=== PATIENT | female | born 1940 | race Caucasian/White ===

== ENCOUNTER 2017-03-12 19:08 | Emergency (ER) | payer MEDICARE ==
[~2017-03-12] VITALS: Ht 160 cm; Wt 93.4 kg
--- NOTE | 2017-03-12 19:38 | ED Hip Pain/Injury ---
General Chief Complaint: Hip/Pelvic Problems Stated Complaint: LT HIP/LOWER BACK PAIN Nursing Triage Note: C/O L hip pain x 3 days, denies injury Source: patient Exam Limitations: no limitations History of Present Illness Time seen by provider: 19:36 Initial Comments To ER with low back and left hip pain for the past 3 days. She states that she fell landing on her buttocks 3 days ago. She has been a mandatory since the event. Pain is been constant. She has had some urinary incontinence since the fall. She denies any loss of sensation of her genitals. She denies any prior history of urinary incontinence prior to this fall that is. Timing/Duration: constant Severity: moderate Allergies and Home Medications Allergies Coded Allergies: red dye (Verified Allergy, Unknown, 03/12/17) Home Medications Unable to Obtain Active Prescriptions or Reported Meds Constitutional: see HPI, No chills, No fever EENTM: see HPI Respiratory: no symptoms reported Cardiovascular: no symptoms reported Genitourinary: no symptoms reported Musculoskeletal: see HPI, back pain Skin: no symptoms reported Psychiatric/Neurological: No Symptoms Reported Past Yjaqqzb-Ptvplv-Taqyav Hx Patient Social History Alcohol Use: Denies Use Recreational Drug Use: No Smoking Status: Never a Smoker Recent Foreign Travel: No Contact w/Someone Who Travel: No Recent Infectious Disease Expo: No Recent Hopitalizations: No Physical Abuse: No Sexual Abuse: No Surgeries History of Surgeries: Yes Surgeries: Appendectomy, Gallbladder, Hysterectomy Respiratory History of Respiratory Disorde: No Cardiovascular History of Cardiac Disorders: No Neurological History of Neurological Disord: Yes Neurological Disorders: Stroke Genitourinary History of Genitourinary Disor: No Gastrointestinal History of Gastrointestinal Di: No Musculoskeletal History of Musculoskeletal Dis: No Endocrine History of Endocrine Disorders: No HEENT History of HEENT Disorders: No Cancer History of Cancer: No Psychosocial History of Psychiatric Problem: No Suicide Risk Score: 0 Integumentary History of Skin or Integumenta: No Blood Transfusions History of Blood Disorders: No Physical Exam Vital Signs Vital Sign - Last 12Hours 03/12/17 19:16 Temp 98.2 Pulse 85 Resp 18 B/P (MAP) 177/82 (113) Pulse Ox 98 Capillary Refill : Less Than 3 Seconds General Appearance: No Apparent Distress, WD/WN HEENT: PERRL/EOMI, TMs Normal Neck: Full Range of Motion, Normal Inspection Respiratory: No Accessory Muscle Use, No Respiratory Distress Gastrointestinal: Normal Bowel Sounds, Non Tender, Soft Back: Normal Inspection, Vertebral Tenderness (left flank tenderness without ecchymosis) Extremity: Normal Capillary Refill, Normal Inspection Neurologic/Psychiatric: Alert, Oriented x3, No Motor/Sensory Deficits Skin: Normal Color, Warm/Dry Progress/Results/Core Measures Results/Orders Lab Results Laboratory Tests Test 03/12/17 20:18 03/12/17 20:28 Range/Units White Blood Count 7.5 4.3-11.0 10^3/uL Red Blood Count 4.39 4.35-5.85 10^6/uL Hemoglobin 13.8 11.5-16.0 G/DL Hematocrit 37 35-52 % Mean Corpuscular Volume 85 80-99 FL Mean Corpuscular Hemoglobin 31 25-34 PG Mean Corpuscular Hemoglobin Concent 37 H 32-36 G/DL Red Cell Distribution Width 12.6 10.0-14.5 % Platelet Count 291 130-400 10^3/uL Mean Platelet Volume 9.6 7.4-10.4 FL Neutrophils (%) (Auto) 49 42-75 % Lymphocytes (%) (Auto) 34 12-44 % Monocytes (%) (Auto) 12 0-12 % Eosinophils (%) (Auto) 4 0-10 % Basophils (%) (Auto) 0 0-10 % Neutrophils # (Auto) 3.7 1.8-7.8 X 10^3 Lymphocytes # (Auto) 2.6 1.0-4.0 X 10^3 Monocytes # (Auto) 0.9 0.0-1.0 X 10^3 Eosinophils # (Auto) 0.3 0.0-0.3 10^3/uL Basophils # (Auto) 0.0 0.0-0.1 10^3/uL Urine Color YELLOW Urine Clarity CLEAR Urine pH 6.5 5-9 Urine Specific [place] 1.015 L 1.016-1.022 Urine Protein NEGATIVE NEGATIVE Urine Glucose (UA) NEGATIVE NEGATIVE Urine Ketones NEGATIVE NEGATIVE Urine Nitrite NEGATIVE NEGATIVE Urine Bilirubin NEGATIVE NEGATIVE Urine Urobilinogen NORMAL NORMAL MG/DL Urine Leukocyte Esterase 3+ H NEGATIVE Urine RBC (Auto) NEGATIVE NEGATIVE Urine RBC RARE /HPF Urine WBC 50-100 H /HPF Urine Squamous Epithelial Cells 0-2 /HPF Urine Crystals NONE /LPF Urine Bacteria TRACE /HPF Urine Casts NONE /LPF Urine Mucus SMALL H /LPF Urine Culture Indicated YES My Orders Orders - TODD STEWART APRN Ua Culture If Indicated (03/12/17 19:29) Cbc With Automated Diff (03/12/17 19:29) Ct Lumbar Spine Wo (03/12/17 19:29) Urine Culture (03/12/17 20:28) Vital Signs/I&O Vital Sign - Last 12Hours 03/12/17 19:16 Temp 98.2 Pulse 85 Resp 18 B/P (MAP) 177/82 (113) Pulse Ox 98 Blood Pressure Mean: 113 Diagnostic Imaging Diagonstic Imaging: CT Comments NAME: [facility]IS [facility] REC#: [id number] PT STATUS: REG ER : 1940 PHYSICIAN: TODD STEWART APRN ADMIT DATE: 03/12/17/ER Draft Date of Exam:03/12/17 CT LUMBAR SPINE WO PROCEDURE: CT lumbar spine without contrast. TECHNIQUE: Multiple contiguous axial images were obtained through the lumbar spine without the use of intravenous contrast. Sagittal and coronal reformations were then performed. INDICATION: Fall, pain. COMPARISON: None available. FINDINGS: Five lumbar type vertebral bodies are assumed. Accentuation of the normal lumbar lordosis. 7 mm retrolisthesis of L2 on L3. No additional anterolisthesis or retrolisthesis. [place] left curvature of the lower lumbar spine. Besides endplate degenerative changes, vertebral body heights are well-maintained. Severe disc space height loss at L1/L2 and L2/L3. Mild disc space height loss at T12/L1. Multilevel anterior osteophytes, particularly at L1/L2 and L2/L3. No acute fracture or dislocation. No destructive osseous process. Significant scattered facet joint degenerative changes are present. There is suggestion of mild central canal stenosis at T11/T12. Additional mild central canal stenosis at L2/L3. Mild neuroforaminal stenosis on the right at L5/S1. Moderate bilateral neuroforaminal stenosis at L2/L3. Additional moderate neuroforaminal stenosis at L3/L4. Mild scattered vascular calcifications. Cholelithiasis. IMPRESSION: 1. No acute osseous abnormality. 2. Accentuation of the normal lumbar lordosis with moderate multilevel degenerative changes. This is greatest at L2/L3 where there is resulting degenerative retrolisthesis with central canal and neuroforaminal stenosis, as above. 3. Additional findings as above. Dictated on workstation # [id number] Dict: 03/12/17 1950 Trans: 03/12/171999 E [id number] Interpreted by: JAVAD GAITAN MD Electronically signed by: Departure Impression Impression: Primary Impression: Urinary tract infection Additional Impression: Acute low back pain Disposition: HOME, SELF-CARE Condition: Stable Departure-Patient Inst. Decision time for Depature: 20:46 Referrals: HALIMA BLACKWELL MD (PCP/Family) Primary Care Physician Patient Instructions: Urinary Tract Infection, Adult (DC) Add. Discharge Instructions: 1. Education as directed 2. Return to ER for any concerns 3. See her regular doctor for follow-up All discharge instructions reviewed with patient and/or family. Voiced understanding. Scripts Sulfamethoxazole/Trimethoprim (Bactrim Ds Tablet) 1 Each Tablet 1 EACH PO BID, #10 TAB Prov: TODD STEWART TEST CONDUCTOR 03/12/17 TODD STEWART APRN Mar 12, 2017 19:38
--- NOTE | 2017-03-12 20:01 | Diagnostic Imaging Report ---
PROCEDURE: CT lumbar spine without contrast. TECHNIQUE: Multiple contiguous axial images were obtained through the lumbar spine without the use of intravenous contrast. Sagittal and coronal reformations were then performed. INDICATION: Fall, pain. COMPARISON: None available. FINDINGS: Five lumbar type vertebral bodies are assumed. Accentuation of the normal lumbar lordosis. 7 mm retrolisthesis of L2 on L3. No additional anterolisthesis or retrolisthesis. [place] left curvature of the lower lumbar spine. Besides endplate degenerative changes, vertebral body heights are well-maintained. Severe disc space height loss at L1/L2 and L2/L3. Mild disc space height loss at T12/L1. Multilevel anterior osteophytes, particularly at L1/L2 and L2/L3. No acute fracture or dislocation. No destructive osseous process. Significant scattered facet joint degenerative changes are present. There is suggestion of mild central canal stenosis at T11/T12. Additional mild central canal stenosis at L2/L3. Mild neuroforaminal stenosis on the right at L5/S1. Moderate bilateral neuroforaminal stenosis at L2/L3. Additional moderate neuroforaminal stenosis at L3/L4. Mild scattered vascular calcifications. Cholelithiasis. IMPRESSION: 1. No acute osseous abnormality. 2. Accentuation of the normal lumbar lordosis with moderate multilevel degenerative changes. This is greatest at L2/L3 where there is resulting degenerative retrolisthesis with central canal and neuroforaminal stenosis, as above. 3. Additional findings as above. Dictated by: Dictated on workstation # [id number]
[2017-03-12 20:27] LABS: BASOPHILS % (AUTO) 0 % (0-10); EOSINOPHILS # (AUTO) 0.3 10^3/uL (0.0-0.3); EOSINOPHILS % (AUTO) 4 % (0-10); HEMATOCRIT 37 % (35-52); HEMOGLOBIN 13.8 G/DL (11.5-16.0); LYMPHOCYTES # (AUTO) 2.6 X 10^3 (1.0-4.0); LYMPHOCYTES % (AUTO) 34 % (12-44); MEAN CORPUSCULAR HEMOGLOBIN 31 PG (25-34); MEAN CORPUSCULAR HGB CONC 37 G/DL (32-36); MEAN CORPUSCULAR VOLUME 85 FL (80-99); MEAN PLATELET VOLUME 9.6 FL (7.4-10.4); MONOCYTES # (AUTO) 0.9 X 10^3 (0.0-1.0); MONOCYTES % (AUTO) 12 % (0-12); NEUTROPHILS # (AUTO) 3.7 X 10^3 (1.8-7.8); NEUTROPHILS % (AUTO) 49 % (42-75); PLATELET COUNT 291 10^3/uL (130-400); RED BLOOD COUNT 4.39 10^6/uL (4.35-5.85); RED CELL DISTRIBUTION WIDTH 12.6 % (10.0-14.5); WHITE BLOOD COUNT 7.5 10^3/uL (4.3-11.0)
[2017-03-12 20:35] LABS: BILIRUBIN,URINE NEGATIVE (NEGATIVE); CLARITY,URINE CLEAR; COLOR,URINE YELLOW; GLUCOSE, URINE (UA) NEGATIVE (NEGATIVE); KETONES,URINE NEGATIVE (NEGATIVE); LEUKOCYTE ESTERASE ,URINE 3+ (NEGATIVE); NITRITE,URINE NEGATIVE (NEGATIVE); PH,URINE 6.5 (5-9); PROTEIN,URINE NEGATIVE (NEGATIVE); UROBILINOGEN,URINE NORMAL (NORMAL)
[2017-03-12 20:44] LABS: BACTERIA,URINE TRACE /HPF; RBC,URINE RARE /HPF; SQUAMOUS EPITHELIAL CELL,UR 0-2 /HPF; WBC,URINE 50-100 /HPF
[2017-03-12] MEDS ORDERED: SULF1TAB35 PO (20:47)
[2017-03-12 20:53] VITALS: BP 168/80
[2017-03-12] MEDS ORDERED: TRIM/SULFAMETH 160/800 (SEPTRA DS) TAB PO ONE (21:00)
== END 2017-03-12 20:53 | disposition home or self-care (01) ==
LOC: EDUNIT# 19:08 → ER 19:11
DX: N39.0 Urinary tract infection, site not specified (principal); M54.5 Low back pain; Z90.710 Acquired absence of both cervix and uterus; Z90.49 Acquired absence of other specified parts of digestive tract; Z86.73 Personal history of transient ischemic attack (TIA), and cerebral infarction without residual deficits; W18.30XA Fall on same level, unspecified, initial encounter
CPT/HCPCS: 36415; 72131; 81000; 85025; 87088; 99283

== ENCOUNTER 2018-05-31 10:45 | Emergency (ER) | payer MEDICARE ==
[~2018-05-31] VITALS: Ht 157.5 cm; Wt 95.3 kg
[~2018-05-31 10:45] MED LIST: SULF1TAB35 PO
[2018-05-31] MEDS ORDERED: VENL75CA93 (11:02)
[2018-05-31] MEDS ORDERED: POTA10TA10 (11:02)
[2018-05-31] MEDS ORDERED: TOPI50TA13 (11:02)
[2018-05-31] MEDS ORDERED: OXCA150T18 (11:02)
[2018-05-31] MEDS ORDERED: BENZONATATE 100 MG (TESSALON) CAPSULE PO SCH (11:30)
--- NOTE | 2018-05-31 11:33 | ED Cough/URI ---
General Chief Complaint: Cough/Cold/Flu Symptoms Stated Complaint: TIGHT CHEST, COUGH STUFFY NOSE Nursing Triage Note: ARRIVED VIA AMB TO ROOM 07 WITH A COUGH THAT IS MAKING HER CHEST HURT THAT STARED THIS WEEKEND. STATS SHE JUST GOT OVER PNEUMONIA. Sepsis Screen: No Definite Risk Source: patient, family (daughter) Exam Limitations: no limitations History of Present Illness Date Seen by Provider: May 31, 2018 Time Seen by Provider: 11:05 Initial Comments 78-year-old female who was brought to the emergency room for her daughter for complaints of a cough, left-sided chest pain with coughing, and nasal congestion that became worse over the last week but she's had similar symptoms for the past month. She reports that she was treated for pneumonia by her primary care at the end of April and feels like she is just never got over it due to the cough she's had. She denies shortness of breath, fevers, nausea, vomiting. Timing/Duration: week Associated Symptoms: chest pain/soreness, cough, nasal congestion Allergies and Home Medications Allergies Coded Allergies: red dye (Verified Allergy, Unknown, 03/12/17) Home Medications Ipratropium/Albuterol Sulfate 3 Ml Ampul.neb, 3 ML IH Q4H PRN for SHORTNESS OF BREATH Prescribed by: SONIYA WORLEY on 05/31/18 1240 Levofloxacin 750 Mg Tablet, 750 MG PO DAILY Prescribed by: SONIYA WORLEY on 05/31/18 1240 Prednisone 20 Mg Tab, 40 MG PO DAILY Prescribed by: SONIYA WORLEY on 05/31/18 1240 Sulfamethoxazole/Trimethoprim 1 Each Tablet, 1 EACH PO BID Prescribed by: TODD STEWART on 03/12/172046 Patient Home Medication List Home Medication List Reviewed: Yes Review of Systems Review of Systems Constitutional: see HPI; No chills, No fever EENTM: see HPI, nose congestion Respiratory: see HPI, cough Cardiovascular: see HPI, chest pain (with coughing) All Other Systems Reviewed Negative Unless Noted: Yes Past Odvqzbt-Woqldp-Rsrzyw Hx Past Med/Social Hx: Reviewed Nursing Past Med/Soc Hx Patient Social History Alcohol Use: Denies Use Recreational Drug Use: No Smoking Status: Never a Smoker Recent Foreign Travel: No Contact w/Someone Who Travel: No Recent Infectious Disease Expo: No Recent Hopitalizations: No Past Medical History Surgeries: Yes Appendectomy, Gallbladder, Hysterectomy, Orthopedic Respiratory: Yes Pneumonia Cardiac: No Neurological: Yes Stroke Genitourinary: No Gastrointestinal: No Musculoskeletal: No Endocrine: No HEENT: No Cancer: No Did You Recieve Any Treatments: No Psychosocial: No Integumentary: No Blood Disorders: No Family Medical History Reviewed Nursing Family Hx Physical Exam Vital Signs - First Documented 05/31/18 10:56 Temp 97.1 Pulse 84 Resp 18 B/P (MAP) 151/78 (102) Pulse Ox 96 O2 Delivery Room Air Capillary Refill : Less Than 3 Seconds Height: 5'2.00" Weight: 210lbs. oz. 95.043569hn; BMI Method:Stated General Appearance: WD/WN, no apparent distress HEENT: PERRL/EOMI, normal ENT inspection, TMs normal, pharynx normal Respiratory: lungs clear, normal breath sounds, no respiratory distress, no accessory muscle use, other (left-sided chest tenderness with palpation) Cardiovascular: normal peripheral pulses, regular rate, rhythm, no edema, no gallop, no JVD, no murmur Extremities: normal range of motion, non-tender, normal inspection, no pedal edema, no calf tenderness, normal capillary refill Neurologic/Psychiatric: alert, normal mood/affect, oriented x 3 Skin: normal color, warm/dry Progress/Results/Core Measures Suspected Sepsis Recent Fever Within 48 Hours: No Infection Criteria Present: Suspected New Infection New/Unexplained Altered Menta: No Sepsis Screen: No Definite Risk SIRS Temperature:97.1 Pulse: 84 Respiratory Rate: 18 Laboratory Tests 05/31/18 11:20: White Blood Count 4.8 Blood Pressure 151 /78 Mean: 102 Laboratory Tests 05/31/18 11:20: Creatinine 0.87, INR Comment 1.1, Platelet Count 236, Total Bilirubin 0.3 Results/Orders Lab Results Laboratory Tests Test 05/31/18 11:20 Range/Units White Blood Count 4.8 4.3-11.0 10^3/uL Red Blood Count 4.11 L 4.35-5.85 10^6/uL Hemoglobin 12.9 11.5-16.0 G/DL Hematocrit 41 35-52 % Mean Corpuscular Volume 99 80-99 FL Mean Corpuscular Hemoglobin 31 25-34 PG Mean Corpuscular Hemoglobin Concent 32 32-36 G/DL Red Cell Distribution Width 13.5 10.0-14.5 % Platelet Count 236 130-400 10^3/uL Mean Platelet Volume 10.3 7.4-10.4 FL Neutrophils (%) (Auto) 45 42-75 % Lymphocytes (%) (Auto) 30 12-44 % Monocytes (%) (Auto) 14 H 0-12 % Eosinophils (%) (Auto) 11 H 0-10 % Basophils (%) (Auto) 1 0-10 % Neutrophils # (Auto) 2.2 1.8-7.8 X 10^3 Lymphocytes # (Auto) 1.4 1.0-4.0 X 10^3 Monocytes # (Auto) 0.7 0.0-1.0 X 10^3 Eosinophils # (Auto) 0.5 H 0.0-0.3 10^3/uL Basophils # (Auto) 0.0 0.0-0.1 10^3/uL Prothrombin Time 14.5 12.2-14.7 SEC INR Comment 1.1 0.8-1.4 Activated Partial Thromboplast Time 32 24-35 SEC Sodium Level 144 135-145 MMOL/L Potassium Level 4.1 3.6-5.0 MMOL/L Chloride Level 112 H 98-107 MMOL/L Carbon Dioxide Level 25 21-32 MMOL/L Anion Gap 7 5-14 MMOL/L Blood Urea Nitrogen 13 7-18 MG/DL Creatinine 0.87 0.60-1.30 MG/DL Estimat Glomerular Filtration Rate > 60 BUN/Creatinine Ratio 15 Glucose Level 89 70-105 MG/DL Calcium Level 8.6 8.5-10.1 MG/DL Corrected Calcium 8.9 8.5-10.1 MG/DL Magnesium Level 2.4 1.8-2.4 MG/DL Total Bilirubin 0.3 0.1-1.0 MG/DL Aspartate Amino Transf (AST/SGOT) 31 5-34 U/L Alanine Aminotransferase (ALT/SGPT) 16 0-55 U/L Alkaline Phosphatase 120 40-136 U/L Myoglobin 42.8 10.0-92.0 NG/ML Troponin I < 0.028 <0.028 NG/ML B-Type Natriuretic Peptide 25.6 <100.0 PG/ML Total Protein 5.5 L 6.4-8.2 GM/DL Albumin 3.6 3.2-4.5 GM/DL Micro Results Microbiology 05/31/18 Influenza Types A,B Antigen (MARYANN) - Final, Complete My Orders Orders - SONIYA WORLEY Cbc With Automated Diff (05/31/18 11:11) Magnesium (05/31/18 11:11) Chest 1 View, Ap/Pa Only (05/31/18 11:11) Ekg Tracing (05/31/18 11:11) Cardiac Profile 1 (05/31/18 11:11) Comprehensive Metabolic Panel (05/31/18 11:11) Myoglobin Serum (05/31/18 11:11) Protime With Inr (05/31/18 11:11) Partial Thromboplastin Time (05/31/18 11:11) O2 (05/31/18 11:11) Monitor-Rhythm Ecg Trace Only (05/31/18 11:11) Saline Lock/Iv-Start (05/31/18 11:11) BNP (05/31/18 11:11) Benzonatate Capsule (Tessalon Perles) (05/31/18 11:30) Influenza A And B Antigens (05/31/18 11:20) Vital Signs/I&O 05/31/18 05/31/18 10:56 12:52 Temp 97.1 Pulse 84 77 Resp 18 16 B/P (MAP) 151/78 (102) 149/78 (101) Pulse Ox 96 98 O2 Delivery Room Air Room Air Capillary Refill : Less Than 3 Seconds Blood Pressure Mean: 102 Progress Note : Time: 12:38 Progress Note I have seen and evaluated the patient. I've informed her of her laboratory and imaging studies. She agrees with plan of care, plans for discharge, return precautions were given. ECG EKG : EKG Time: 11:18 Rate: 79 Rhythm: Normal Sinus Intervals: Normal ECG Comparisson: Unchanged ECG Impression: Normal Diagnostic Imaging Diagonstic Imaging: Xray Comments NAME: ANAIS MORGAN [facility] REC#: [id number] PT STATUS: DEP ER : 1940 PHYSICIAN: SONIYA WORLEY ADMIT DATE: 05/31/18/ER Signed Date of Exam:05/31/18 CHEST 1 VIEW, AP/PA ONLY Indication: Cough and chest pain. Time of exam: 11:42 AM Correlation is made with prior chest from 02/06/2009. The heart size is normal. The pulmonary vascularity is unremarkable. The lungs are clear. No infiltrate, effusion or pneumothorax is detected. Impression: No acute cardiopulmonary process is detected. Dictated by: Dictated on workstation # [id number] Dict: 05/31/18 1201 Trans: 05/31/18 1534 CVB [id number] Interpreted by: MARIPOSA LINO MD Electronically signed by: MARIPOSA LINO MD 05/31/18 1534 Reviewed: Reviewed by Me Departure Impression Primary Impression: Bronchitis Disposition: HOME, SELF-CARE Condition: Stable/Unchanged Departure-Patient Inst. Decision time for Depature: 12:38 Referrals: HALIMA BLACKWELL MD (PCP/Family) Primary Care Physician Patient Instructions: Bronchiolitis (DC) Add. Discharge Instructions: Take medications as directed. You may use [id number] cough suppressants as directed by the packaging. Return back to the emergency room for worsening symptoms or concerns as needed. Follow-up with Dr. Kirkpatrick within 1 week for recheck. All discharge instructions reviewed with patient and/or family. Voiced understanding. Scripts Ipratropium/Albuterol Sulfate (Iprat-Albut 0.5-3(2.5) mg/3 ml) 3 Ml Ampul.neb 3 ML IH Q4H PRN for SHORTNESS OF BREATH, #30 EACH Prov: SONIYA WORLEY 05/31/18 Prednisone (Prednisone) 20 Mg Tab 40 MG PO DAILY for 5 Days, #10 TAB Prov: SONIYA WORLEY 05/31/18 Levofloxacin (Levaquin) 750 Mg Tablet 750 MG PO DAILY for 7 Days, #7 TAB Prov: SONIYA WORLEY 05/31/18 SONIYA WORLEY May 31, 2018 11:32
[2018-05-31 11:39] LABS: BASOPHILS % (AUTO) 1 % (0-10); EOSINOPHILS # (AUTO) 0.5 10^3/uL (0.0-0.3); EOSINOPHILS % (AUTO) 11 % (0-10); HEMATOCRIT 41 % (35-52); HEMOGLOBIN 12.9 G/DL (11.5-16.0); LYMPHOCYTES # (AUTO) 1.4 X 10^3 (1.0-4.0); LYMPHOCYTES % (AUTO) 30 % (12-44); MEAN CORPUSCULAR HEMOGLOBIN 31 PG (25-34); MEAN CORPUSCULAR HGB CONC 32 G/DL (32-36); MEAN CORPUSCULAR VOLUME 99 FL (80-99); MEAN PLATELET VOLUME 10.3 FL (7.4-10.4); MONOCYTES # (AUTO) 0.7 X 10^3 (0.0-1.0); MONOCYTES % (AUTO) 14 % (0-12); NEUTROPHILS # (AUTO) 2.2 X 10^3 (1.8-7.8); NEUTROPHILS % (AUTO) 45 % (42-75); PLATELET COUNT 236 10^3/uL (130-400); RED CELL DISTRIBUTION WIDTH 13.5 % (10.0-14.5); WHITE BLOOD COUNT 4.8 10^3/uL (4.3-11.0)
[2018-05-31 11:53] LABS: INR 1.1 (0.8-1.4); PROTHROMBIN TIME PATIENT 14.5 SEC (12.2-14.7)
--- NOTE | 2018-05-31 12:03 | Diagnostic Imaging Report ---
Indication: Cough and chest pain. Time of exam: 11:42 AM Correlation is made with prior chest from 02/06/2009. The heart size is normal. The pulmonary vascularity is unremarkable. The lungs are clear. No infiltrate, effusion or pneumothorax is detected. Impression: No acute cardiopulmonary process is detected. Dictated by: Dictated on workstation # [id number]
[2018-05-31 12:05] LABS: ALANINE AMINOTRANSFERASE 16 U/L (0-55); ALBUMIN 3.6 GM/DL (3.2-4.5); ALKALINE PHOSPHATASE 120 U/L (40-136); BILIRUBIN,TOTAL 0.3 MG/DL (0.1-1.0); BUN/CREATININE RATIO 15; CALCIUM 8.6 MG/DL (8.5-10.1); CARBON DIOXIDE 25 MMOL/L (21-32); CHLORIDE 112 MMOL/L (98-107); CREATININE SERUM 0.87 MG/DL (0.60-1.30); GFR ESTIMATED > 60; GLUCOSE 89 MG/DL (70-105); MAGNESIUM 2.4 MG/DL (1.8-2.4); POTASSIUM 4.1 MMOL/L (3.6-5.0); SODIUM 144 MMOL/L (135-145); TOTAL PROTEIN 5.5 GM/DL (6.4-8.2)
[2018-05-31 12:14] LABS: MYOGLOBIN SERUM 42.8 NG/ML (10.0-92.0)
--- NOTE | 2018-05-31 12:37 | NUR ---
SONIYA IN TALKING TO PT AT THIS TIME.
[2018-05-31] MEDS ORDERED: LEVO750T9 PO (12:40)
[2018-05-31] MEDS ORDERED: IPRA3AMP31 IH (12:40)
[2018-05-31] MEDS ORDERED: PRD20T PO (12:40)
[2018-05-31 12:52] VITALS: BP 149/78
== END 2018-05-31 12:51 | disposition home or self-care (01) ==
LOC: EDUNIT# 10:45 → ER 10:49
DX: J40 Bronchitis, not specified as acute or chronic (principal); Z91.041 Radiographic dye allergy status; Z79.52 Long term (current) use of systemic steroids; Z90.49 Acquired absence of other specified parts of digestive tract; Z90.710 Acquired absence of both cervix and uterus; Z98.890 Other specified postprocedural states; Z87.01 Personal history of pneumonia (recurrent); Z86.73 Personal history of transient ischemic attack (TIA), and cerebral infarction without residual deficits
CPT/HCPCS: 36415; 71045; 80053; 83735; 83874; 83880; 84484; 85025; 85610; 85730; 87804; 93005; 93041

== ENCOUNTER 2021-11-21 13:56 | Day surgery (SDC) | payer MEDICARE ==
[2021-11-21] VITALS (9 sets, daily range): BP systolic 140–181; BP diastolic 63–88
[~2021-11-21] VITALS: Ht 154 cm; Wt 100.0 kg
[~2021-11-21 13:56] MED LIST changes: +IPRA3AMP31 IH; +LEVO750T9 PO; +OXCA150T18; +POTA10TA10; +PRD20T PO; -SULF1TAB35 PO; +SULF1TAB38 PO; +TOPI50TA13 PO; +VENL75CA93
[2021-11-21] MEDS ORDERED: LIDOCAINE/EPI 2% 1:200,00 (XYLOCAINE) 20 ML VIAL ONE (14:12)
[2021-11-21] MEDS: LACTATED RINGERS 1,000 ML IV PRN ×2 (14:20→15:45)
[2021-11-21] MEDS ORDERED: ceFAZolin INJECTION 1,000 MG VIAL IV ONE (14:30)
[2021-11-21] MEDS ORDERED: ceFAZolin INJECTION 2,000 MG in NS (IVPB) 50 ML IV NR (14:30)
[2021-11-21] MEDS ORDERED: SEVOFLURANE (ULTANE) 15 ML INHAL SOLN ONE ×2 (14:39→16:43)
[2021-11-21] MEDS ORDERED: LIDOCAINE PF 2% 5 ML (XYLOCAINE) VIAL ONE (14:39)
[2021-11-21] MEDS ORDERED: proPOfol 200 MG/20 ML (DIPRIVAN) VIAL IV ONE (14:39)
[2021-11-21] MEDS ORDERED: ONDANSETRON 4 MG/2 ML (SDV) Z0FRAN ONE (14:39)
[2021-11-21] MEDS ORDERED: fentaNYL INJ 100 MCG/2 ML AMP ONE (14:39)
--- NOTE | 2021-11-21 14:52 | Progress Note-Pre Operative ---
Pre-Operative Progress Note Date H&P Reviewed: Nov 21, 2021 Time H&P Reviewed: 14:50 History & Physical: H&P Reviewed, Patient Examed, No changes noted Pre-Operative Diagnosis: Chronic calculous cholecystitis JUAN CARLOS ORTEGA APRN Nov 21, 2021 14:52
[2021-11-21] MEDS ORDERED: TRM50T PO (14:54)
--- NOTE | 2021-11-21 14:55 | Discharge Inst-Surgical ---
D/C Lap Instructions-KIDO Reconcile Patient Problems Problems Reviewed?: Yes New, Converted, or Re-Newed RX: RX on Chart Follow Up Appt in 2 weeks Activity as tolerated No driving for 24 hours No driving while on pain medications Incentive Spirometry use every 2 hours while awake Regular Diet Symptoms to Report: Fever over 101 degree F, Nausea/Vomiting Infection Signs and Symptoms to report: Increased redness, Foul odor of wound, Increased drainage Bathing instructions: May shower Operative Area Clean/Dry; Keep incision clean/dry If any problems/questions: Contact your physician or go to Emergency Room JUAN CARLOS ORTEGA APRN Nov 21, 2021 14:55
[2021-11-21] MEDS ORDERED: ACETAMINOPHEN 325 MG TABLET PO PRN (15:00)
[2021-11-21] MEDS ORDERED: morphine INJ 10 MG/ML 1ML (SYR OR VIAL) IVP PRN (15:00)
[2021-11-21] MEDS ORDERED: ONDANSETRON 4 MG/2 ML (SDV) Z0FRAN IVP PRN ×2 (15:00→17:00)
[2021-11-21] MEDS ORDERED: MIRT-68 PO (15:02)
[2021-11-21] MEDS ORDERED: POTA10CA43 PO (15:05)
[2021-11-21] MEDS ORDERED: VENL150C3 PO (15:11)
[2021-11-21] MEDS ORDERED: morphine INJ 10 MG/ML 1ML (SYR OR VIAL) ONE (15:26)
[2021-11-21] MEDS ORDERED: SUGAMMADEX 500 MG/5 ML VIAL (BRIDION) IV ONE (16:10)
[2021-11-21] MEDS ORDERED: GLYCOPYRROLATE 0.2 MG/ML (ROBINUL) 2 ML VIAL ONE (16:10)
[2021-11-21] MEDS ORDERED: ROCURONIUM 50 MG/5 ML (ZEMURON) VIAL IV ONE (16:11)
--- NOTE | 2021-11-21 16:16 | Progress Note-Post Operative ---
Post-Operative Progess Note Surgeon (s)/Project Management Professor (s) Surgeon EVELIN SALAMANCA MD Project Management Professor: homer chew [employer] Pre-Operative Diagnosis Chronic calculous cholecystitis Post-Operative Diagnosis acute calculous cholecystitis Procedure & Operative Findings Date of Procedure 11/21/21 Procedure Performed/Findings laparoscopic cholecystectomy Anesthesia Type get Estimated Blood Loss Estimated blood loss (mL): minimal Specimens/Packing Specimens Removed gallbladder EVELIN SALAMANCA MD Nov 21, 2021 16:16
[2021-11-21] MEDS ORDERED: morphine INJ 10 MG/ML 1ML (SYR OR VIAL) IVP ONE (17:00)
--- NOTE | 2021-11-21 21:36 | OPERATIVE REPORT ---
DATE OF SERVICE: 11/21/2021 ATTENDING PRIMARY GRADUATE STUDENT: Liz Thomas APRN PREOPERATIVE DIAGNOSIS: Symptomatic chronic calculous cholecystitis. POSTOPERATIVE DIAGNOSIS: Acute calculous cholecystitis. PROCEDURE: Laparoscopic cholecystectomy. SURGEON: Evelin Salamanca MD. FINAL TOUCH UP PAINTER: Larry Nelson APRN. ANESTHESIA: General endotracheal. ESTIMATED BLOOD LOSS: Minimal. FINDINGS: Significantly distended gallbladder with gallbladder wall thickening and edema consistent with acute cholecystitis. DISPOSITION: The patient tolerated the procedure well. 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 She reports that she has been having this for years; however, in the past few months, this has become significantly worse and on today, she had significant pain in the right upper abdominal quadrant with radiation towards the back. She did undergo workup before in the past as well as today and found to have gallbladder wall thickening as well as gallstones. DESCRIPTION OF PROCEDURE: The patient was brought to the operating room, laid supine on the table. After adequate IV pain and sedative medications and general endotracheal intubation, the abdomen was prepped and draped in standard surgical fashion. A 0.5% Marcaine with epinephrine was then used to anesthetize the overlying skin in the left upper abdominal quadrant and a transverse skin incision made using a 15 blade. An 0 silk suture was applied to the medial aspect of incision for retraction and a Veress needle inserted with a low opening pressure of 0 mmHg. The abdomen was then insufflated to 15 mmHg pressure. The Veress needle removed and a 5 mm XL trocar placed followed by a 5 mm 45-degree angle laparoscope visualizing the peritoneal cavity. A 4-quadrant abdominal exploration was performed. A significantly distended gallbladder with gallbladder wall thickening identified consistent with acute cholecystitis. Under direct visualization, we then proceeded to place a supraumbilical 10 mm port after the skin and peritoneal lining were anesthetized using 0.5% Marcaine with epinephrine and a transverse skin incision made using a 15 blade. In a similar manner, a right upper abdominal quadrant 5 mm port was placed. The patient was then placed in a reverse Trendelenburg position as well as plane right side up, left side down. The fundus of the gallbladder was then retracted anteriorly and superiorly. There were omental adhesions to the gallbladder, which were taken down using electrocautery as well as blunt dissection. The hepatoduodenal ligament was then reached and then dissected with blunt dissection as well as electrocautery on the hook instrument as well as a [place] dissector. The entire critical view of safety was identified including the triangle of Calot as well as the cystic duct and artery as the only two structures going into the gallbladder as well as the cystic plate behind the proximal gallbladder. A timeout was taken and then the cystic duct and artery were then clipped proximally and distally and cut with EndoShears. The gallbladder was then dissected off the liver bed using cautery on hook instrument with visualization of good hemostasis as well as no leaking ducts of Luschka. The gallbladder was removed through the 10 mm port site using an EndoCatch bag. The 10 mm port site fascia and peritoneum were then closed using a 0 Vicryl suture on a UR needle in a running fashion. The abdomen was desufflated. The remaining ports removed. All skin incisions were closed using 4-0 Monocryl running subcuticular sutures. Wounds were then cleaned and covered with Dermabond. The patient tolerated the procedure well. We will start IV and oral pain medication as well as a clear liquid diet. The patient also has multiple medical comorbidities and is very weak and lives at home alone and we will admit her for a 23-hour observation. When she is tolerating liquids, has good pain control and is ambulating well, we will then discharge her home. Job ID: [id number] DocumentID: [id number] Dictated Date: 11/21/2021 16:22:[address] Date: 11/21/2021 21:35:52 Dictated By: EVELIN SALAMANCA MD
[2021-11-22 03:42] VITALS: BP 163/82
[2021-11-22 07:55] VITALS: BP 174/77
--- NOTE | 2021-11-22 08:18 | Anesthesia-General Post-Op ---
General Patient Condition Mental Status/LOC: Same as Preop Cardiovascular: Satisfactory Nausea/Vomiting: Absent Respiratory: Satisfactory Pain: Controlled Complications: Absent Post Op Complications Complications None Follow Up Care/Instructions Patient Instructions None needed. Anesthesia/Patient Condition Patient Condition Patient is doing well, no complaints, stable vital signs, no apparent adverse anesthesia problems. No complications reported per nursing. DENIZ GIBBONS CRNA Nov 22, 2021 08:18
--- NOTE | 2021-11-22 08:47 | Progress Note ---
Subjective Date Seen by a Provider: Nov 22, 2021 Time Seen by a Provider: 08:25 Subjective/Events-last exam Patient reports doing ok. She reports that she is sore and having some nausea but no vomiting. Tolerating clear liquids. Reports that she did get up to the bedside commode for BM this morning. Objective Exam Vital Signs Date Time Temp Pulse Resp B/P (MAP) Pulse Ox O2 Delivery O2 Flow Rate FiO2 11/22/21 07:55 36.4 92 18 174/77 (109) 92 Room Air 11/22/21 03:42 37.6 85 18 163/82 (109) 96 Room Air 11/21/21 23:42 36.8 83 18 140/77 (98) 94 Room Air 11/21/21 20:55 94 Room Air 11/21/21 20:00 36.5 89 18 181/74 (109) 95 Room Air 11/21/21 18:45 100 Room Air 11/21/21 18:00 36.3 84 16 146/75 (98) 92 Room Air 11/21/21 17:45 Room Air 11/21/21 17:30 OxyMask 4.00 11/21/21 17:30 36.4 20 178/84 (115) 100 Room Air 11/21/21 17:20 20 175/88 (117) 100 OxyMask 4.00 11/21/21 17:15 OxyMask 8 11/21/21 17:10 22 165/87 (113) 100 OxyMask 8 11/21/21 17:00 20 163/81 (108) 100 OxyMask 8 11/21/21 17:00 OxyMask 8 11/21/21 16:47 36.8 24 154/63 (93) 100 OxyMask 8 11/21/21 16:47 OxyMask 8 11/21/21 14:34 37.6 96 18 140/73 (95) 93 Room Air I & O 11/22/21 07:00 Intake Total 1200 ml Balance 1200 ml Capillary Refill : General Appearance: No Apparent Distress, WD/WN, Obese Neck: Normal Inspection, Supple Respiratory: No Accessory Muscle Use, No Respiratory Distress Gastrointestinal: normal bowel sounds, soft, tenderness Extremity: Normal Inspection, Normal Range of Motion Neurologic/Psychiatric: Alert, Oriented x3 Skin: Normal Color, Warm/Dry, Other (Abdominal incisions C/D/I) Assessment/Plan Assessment/Plan Assess & Plan/Chief Complaint An 81 year old female with 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 JUAN CARLOS ORTEGA TRANSMISSION SUPERVISOR Nov 22, 2021 08:47
[2021-11-22 11:31] VITALS: BP 196/108
[2021-11-22] MEDS ORDERED: MONT-40 PO (12:41)
[2021-11-22] MEDS ORDERED: VENL75CA93 PO (12:41)
[2021-11-22 16:00] VITALS: BP 143/72
[2021-11-22] MEDS ORDERED: HYDR-3817 PO (16:18)
[2021-11-22 16:45] VITALS: BP 143/72
== END 2021-11-22 16:50 | disposition home or self-care (01) ==
LOC: SDC 13:56 → 4TH 17:50 → SDC 11-22 16:50
PROVIDERS: ATTEND Surgery
DX: K80.12 Calculus of gallbladder with acute and chronic cholecystitis without obstruction (principal); E66.01 Morbid (severe) obesity due to excess calories; Z68.41 Body mass index [BMI] 40.0-44.9, adult
CPT/HCPCS: 87081

== ENCOUNTER → 2021-11-29 | Outpatient (CLI) | payer MEDICARE ==
[2021-11-29] VITALS (10 sets, daily range): BP systolic 116–144; BP diastolic 64–84
[~2021-11-29] MED LIST changes: +1/2 NS IV SOLUTION 1,000 ML IV STA; +HYDR-3817 PO; +LIDOCAINE 1% INJ 10 ML VIAL INJ ONE; +MIDAZOLAM 2 MG/2 ML (VERSED) VIAL IVP ONE; +MIRT-68 PO; +MONT-40 PO; +ONDANSETRON 4 MG/2 ML (SDV) Z0FRAN IVP PRN; +POTA10CA43 PO; +TRM50T PO; +VENL150C3 PO; +VENL75CA93 PO; +fentaNYL INJ 100 MCG/2 ML AMP IVP ONE
[2021-11-29 13:56] LABS: HEMATOCRIT 40 % (35-52); HEMOGLOBIN 12.8 g/dL (11.5-16.0); MEAN CORPUSCULAR HEMOGLOBIN 32 pg (25-34); MEAN CORPUSCULAR HGB CONC 32 g/dL (32-36); MEAN CORPUSCULAR VOLUME 99 fL (80-99); MEAN PLATELET VOLUME 9.9 fL (9.0-12.2); PLATELET COUNT 400 10^3/uL (130-400); WHITE BLOOD COUNT 9.8 10^3/uL (4.3-11.0)
[2021-11-29 14:04] LABS: INR 1.4 (0.8-1.4); PROTHROMBIN TIME PATIENT 17.6 SEC (12.2-14.7)
--- NOTE | 2021-11-29 16:44 | Diagnostic Imaging Report ---
INDICATION: Status post cholecystectomy several days earlier. Patient has right upper quadrant fluid collections. Patient presents for CT-guided drainage. TECHNIQUE: All CT scans use one or more of the following dose optimizing techniques: Automated exposure control, MA and/or KvP adjustment based on patient size and exam type or iterative reconstruction. The patient was brought to the CT suite and placed on the table in the supine position. Axial imaging through the abdomen was performed to evaluate appropriate entry site. Skin of the right upper quadrant was prepped and draped in the usual sterile fashion. A small amount of 1% lidocaine was utilized for local anesthesia. A Navionics catheter was used to percutaneously access the subhepatic fluid collection. This was exchanged over a 0.035 Amplatz guidewire. 6, 8, and 10-Slovenian dilators were then utilized to dilate the tract. A 10.5-Slovenian pigtail drain was then placed over the Amplatz wire. The pigtail loop was formed within the fluid collection. Wire was removed. Catheter was affixed to the patient's skin and placed to accordion drain. The patient tolerated the procedure well and left the department in stable condition. IMPRESSION: Successful CT-guided percutaneous drain placement in the right upper quadrant, as described. Dictated by: Dictated on workstation # [id number]
== END ==
LOC: SDC 12:39
PROVIDERS: ATTEND Surgery
DX: R10.11 Right upper quadrant pain (principal); R18.8 Other ascites; R79.1 Abnormal coagulation profile
CPT/HCPCS: 77012; 85027; 85610; 85730; C1729 ×2; C1769; 36415

== ENCOUNTER → 2021-12-12 | Outpatient (CLI) | payer MEDICARE ==
[~2021-12-12] MED LIST changes: -1/2 NS IV SOLUTION 1,000 ML IV STA; -LIDOCAINE 1% INJ 10 ML VIAL INJ ONE; -MIDAZOLAM 2 MG/2 ML (VERSED) VIAL IVP ONE; -ONDANSETRON 4 MG/2 ML (SDV) Z0FRAN IVP PRN; -fentaNYL INJ 100 MCG/2 ML AMP IVP ONE
--- NOTE | 2021-12-12 14:01 | Diagnostic Imaging Report ---
INDICATION: Abdominal pain. History of recent cholecystectomy. Indwelling postsurgical drain COMPARISON: None Tc-99m mebrofenin 5.10 mCi IV FINDINGS: The upper abdomen was imaged for 60 minutes with the gamma camera. There is normal appearance of activity in the liver. There is activity in the common duct and and small bowel by 60 minutes. There is no abnormal collection of radiotracer activity to suggest bile leak. IMPRESSION: 1. No abnormal collection of radiotracer activity to suggest bile leak. Dictated by: Dictated on workstation # [id number]
== END ==
LOC: CARD 11:28
PROVIDERS: ATTEND Surgery
DX: R10.9 Unspecified abdominal pain (principal); Z90.49 Acquired absence of other specified parts of digestive tract; Z98.890 Other specified postprocedural states
CPT/HCPCS: 78226; A9537